=== PATIENT | male | born 1965 | race Caucasian/White ===

== ENCOUNTER 2021-03-31 13:19 | Emergency (ER) | payer MEDICAID, OTHER ==
[~2021-03-31] VITALS: Ht 175.3 cm; Wt 80.7 kg
[2021-03-31 14:08] VITALS: BP 144/99
[2021-03-31] MEDS ORDERED: KETOROLAC 15 MG/ML VIAL IM ONE ×2 (14:15→14:40)
[2021-03-31] MEDS ORDERED: NAPR-54 PO (14:29)
[2021-03-31] MEDS ORDERED: GABA300C PO (14:29)
[2021-03-31] MEDS ORDERED: KETOROLAC 30 MG/ML VIAL ONE (14:37)
--- NOTE | 2021-03-31 14:44 | NUR ---
55 Y/O MALE C/O BOTTOM OF R FOOT PAIN RADIATING UP TO KNEE X4 DAYS. PT REPORTS THE PAIN WAS WORSE TODAY. PT AMBULATES WITH STEADY GAIT. PT RATES PAIN 10/10 THAT HE DESCRIBES SHARP, "WALKING ON GLASS/FIRE". PT TOOK MOTRIN WITH NO RELIEF. PT A/O X4 WITH EVEN AND UNLABORED RESPIRATIONS PMH:COPD NKDA
--- NOTE | 2021-03-31 14:52 | NUR ---
Patient discharged with v/s stable. Written and verbal after care instructions ABOUT NEUROPATHIC PAIN AND LEG CRAMPS given and explained. Patient alert, oriented and verbalized understanding of instructions. Ambulatory with steady gait. All questions addressed prior to discharge. ID band removed. Patient advised to follow up with PMD. Rx of GABAPENTIN AND NAPROXEN given. Patient educated on indication of medication including possible reaction and side effects. Opportunity to ask questions provided and answered.
== END 2021-03-31 14:52 | disposition home or self-care (01) ==
LOC: MED 13:19
DX: M79.604 Pain in right leg (principal); F17.200 Nicotine dependence, unspecified, uncomplicated; J44.9 Chronic obstructive pulmonary disease, unspecified; Z79.899 Other long term (current) drug therapy
CPT/HCPCS: 96372; 99283; J1885